=== PATIENT | male | born 1985 | race Two or more races ===

== ENCOUNTER 2025-03-09 12:16 | Emergency (ER) | payer OTHER ==
[~2025-03-09] VITALS: Ht 180.3 cm; Wt 93.0 kg
[2025-03-09] MEDS ORDERED: LIDOCAINE HCL 1% 20 ML VIAL ONE (12:55)
[2025-03-09] MEDS: TERBUTALINE SULFATE 1 MG/1 ML VIAL SQ ONE (13:07)
[2025-03-09] MEDS: LIDOCAINE HCL 1% 20 ML VIAL TP ONE (13:07)
[2025-03-09 13:57] VITALS: BP 129/67; O2SAT 99
== END 2025-03-09 13:57 | disposition home or self-care (01) ==
LOC: ER 12:16
DX: N48.30 Priapism, unspecified (principal); N52.9 Male erectile dysfunction, unspecified; F32.A Depression, unspecified
CPT/HCPCS: 99284; 54220; J3490; A4606; A4663